=== PATIENT | female | born 1985 ===

== ENCOUNTER → 2018-06-08 19:37 | Outpatient (REF) | payer OTHER, MEDICAID, SELFPAY ==
[2018-06-08 20:40] LABS: Vitamin D 25 Hydroxy (D3) 27.2 ng/mL (30.0-100.0)
== END ==
LOC: LAB 19:37
PROVIDERS: Visit Provider Physician Assistant Medical
DX: E55.9 Vitamin D deficiency, unspecified (principal)
CPT/HCPCS: 36415; 82306